=== PATIENT | male | born 1960 | race Caucasian/White ===

== ENCOUNTER → 2025-01-31 08:24 | Outpatient (REF) | payer MEDICARE, OTHER, SELFPAY | LOC: RCS 08:24 | PROVIDERS: ATTENDING PHYSICIAN Internal Medicine Cardiovascular Disease; FAMILY PHYSICIAN Family Medicine | DX: R03.0 Elevated blood-pressure reading, without diagnosis of hypertension (principal); R94.31 Abnormal electrocardiogram [ECG] [EKG] | CPT/HCPCS: 93306 ==